=== PATIENT | male | born 1940 | race Caucasian/White ===

== ENCOUNTER 2022-12-02 12:08 | Day surgery (SDC) | payer MEDICARE, OTHER, SELFPAY ==
--- NOTE | 2022-12-02 | LES_PTH ---
PATIENT: JARRED YEE LOC: [facility] [place] U#:[id number] AGE/SX: 82/M ROOM: RE12/02/[address]: Dr. Jayda Novoa MD : 1940 BED: DIS: 12/02/2022 SPEC #: [id number] RECD: 12/02/22 18:31 STATUS: INESSA SUKUMAR #: [id number] CHAVA: 12/02/22 00:[address]: Jayda Novoa DEPT: SURGICAL PATHOLOGY RECD BY: Jake Adamson ENTERED: 12/03/22 10:26 SP TYPE: Lesion OTHR DR: Dr. Jarred Moore II, MD Tissues: A - Skin of nose, NOS B - Skin of head, NOS C - Skin of neck, NOS Procedures: Surgery Specimen Level IV HEADER OPERATION: Excision right nasal lesion, shave biopsy left adventist and right neck PRE-OP DIAGNOSIS: Neoplasm lesion of right nasal, left adventist and right neck TISSUE SUBMITTED: A - Right nasal lesion, B - Shave lesion left adventist, C - Shave lesion right neck MICROSCOPIC DIAGNOSIS A. Right nasal lesion, excisional biopsy: Basal cell carcinoma. See comment. B. Left temporal lesion, shave biopsy: Seborrheic keratosis. Focal actinic keratosis with verrucous keratosis-like features. C. Right neck lesion, shave biopsy: Actinic keratosis with verrucous keratosis-like features. Focal seborrheic keratosis. SJ:valente 12/06/2022 COMMENT A. The tumor is present at one lateral resection margin of the specimen. Clinical correlation and appropriate follow up are necessary. Case has been reviewed in consultation with Dr. Schulte who concurs with the above diagnosis. IDC:AM MICROSCOPIC DESCRIPTION Slides are reviewed. GROSS DESCRIPTION A - Received in fixative is one container labeled with the patient's name and designated right nasal lesion. The specimen consists of a discoid fragment of light mendez excised skin measuring 1.5 x 1.2 x 0.2 cm. The cutaneous surface displays an irregular waxy lesion measuring 1.0 cm in greatest dimension. The specimen is inked, serially sectioned and submitted entirely in one cassette. B - Received in fixative is one container labeled with the patient's name and designated shave biopsy left adventist. The specimen consists of an elongated fragment of dark to light mendez shave skin measuring 1.5 x 0.5 x 0.2 cm. The specimen is totally submitted in one cassette. C - Received in fixative is one container labeled with the patient's name and designated shave biopsy of right neck. The specimen consists of three irregular fragments of light mendez soft tissue ranging in size from 0.2 to 0.8 cm. The largest fragment is inked, bisected and submitted along with the smaller fragments in one cassette. / AM:valente 12/03/2022 TC:0 CPT: 88268 x3
[2022-12-02 12:36] VITALS: BP 152/86; PULSE 73; RESP 16; TEMP 36; O2SAT 94; BMI 39.6
--- NOTE | 2022-12-02 13:39 | PCM.HP.STD ---
HPI - General General Date of Admission: 12/02/22 Date of Service: 12/02/22 Chief Complaint: Lesion of right nose, lesion of left forehead and right neck of uncertain behavior HPI Narrative JARRED YEE, is a 82 M who presents for excision of the lesion of the right nose as well as shave excision of the lesion of his left forehead and right neck. [facility] Medical History (Updated 10/20/22 @ 10:[address] Jayda Novoa MD) BPH (benign prostatic hyperplasia) Depression Heart disease History of COVID-19 (~2020) History of DVT in adulthood History of squamous cell carcinoma HTN (hypertension) Renal calculi Home Medications acetaminophen 500 mg tablet (Tylenol Extra Strength) 500 mg PO Q6H PRN 10/20/22 [History Last Taken Unknown] ascorbic acid (vitamin C) 500 mg capsule mg PO 10/20/22 [History Last Taken Unknown] aspirin 81 mg tablet,delayed release 81 mg PO DAILY 10/20/22 [History Last Taken Unknown] cholecalciferol (vitamin D3) 50 mcg (2,000 unit) capsule 50 mcg PO DAILY 10/20/22 [History Last Taken Unknown] duloxetine 30 mg capsule,delayed release 30 mg PO DAILY 10/20/22 [History Last Taken Unknown] losartan 25 mg tablet mg PO 10/20/22 [History Last Taken Unknown] metoprolol succinate 25 mg tablet,extended release 24 hr mg PO 10/20/22 [History Last Taken Unknown] tamsulosin 0.4 mg capsule mg PO 10/20/22 [History Last Taken Unknown] vitamin B complex (B-Complex tablet) 1 tab PO DAILY 10/20/22 [History Last Taken Unknown] warfarin 5 mg tablet mg PO 10/20/22 [History Last Taken Unknown] Allergy/AdvReac Type Severity Reaction Status Date / Time acetaminophen [From Percocet] AdvReac Intermediate Low blood Verified 10/20/22 09:37 pressure oxycodone [From Percocet] AdvReac Intermediate Low blood Verified 10/20/22 09:37 pressure Family History (Updated 10/20/22 @ 09:36 by Megan Max) Father Hypertension Diabetes Heart disease Cancer skin Mother Hypertension Cancer skin Surgical History (Updated 10/20/22 @ 09:35 by Megan Max) History of amputation of right great toe (~04/2022) History of appendectomy History of hernia repair History of squamous cell carcinoma excision History of tonsillectomy Social History (Updated 10/20/22 @ 09:16 by Megan Max) Smoking Status: Former smoker alcohol intake: never substance use type: does not use Vital Signs Vital Signs Vital Signs: 12/02/22 12:36 12/02/22 12:36 Temperature 96.8 F L Temperature Source Temporal Pulse Rate 73 Respiratory Rate 16 Respiratory Pattern Normal Blood Pressure 152/86 H Blood Pressure Mean 108 Blood Pressure Source Monitor Blood Pressure Position Sitting Blood Pressure Location Left Arm Pulse Ox 94 Oxygen Delivery Method Room Air Weight Weight: 309 lb 4.937 oz Body Mass Index (BMI) 39.6 Physical Exam Const alert, oriented x3, no apparent distress, average body habitus and well nourished General Appearance: cooperative and well developed Orientation / Consciousness: oriented to person, oriented to place and oriented to time HEENT head/scalp atraumatic, external ears normal and external nose normal Head and Scalp: normal to inspection, normocephalic, atraumatic and abrasion Face and Sinus: normal facial exam and face symmetric Nose: external nose normal External Ear: external ears normal External Auditory Canal: EAC's normal Mouth: lips normal Eyes PERRL, EOMs intact bilaterally and conjunctivae normal General Eye: normal appearance of both eyes Periorbital: periorbital findings normal Eyelid: eyelids normal Conjunctiva: conjunctiva normal Pupil: PERRL Neck full ROM Lymph Lymphatic: no lymphadenopathy noted Chest inspection of chest normal Breast/Axilla Palpation: no axillary lymphadenopathy Resp normal respiratory effort, normal air movement and clear to auscultation bilaterally Auscultation: clear to auscultation bilaterally Cardio regular rate, regular rhythm, S1 normal heart sound, S2 normal heart sound and no murmurs Rate: regular rate Rhythm: regular rhythm GI soft to palpation and non-tender Extremity normal to inspection and full ROM General Extremity: edema bilateral Skin Skin Narrative: Ulcerated lesion of right nose. Hyperkeratotic and exophytic lesion of his left buddhist and right neck General Skin Exam: turgor normal Neuro oriented x3, CN's II-XII intact bilaterally, moves all extremities, no focal motor deficits and no sensory deficits noted Sensorium / Orientation: awake, alert, oriented to person, oriented to place and oriented to time Speech: speech normal Gait (Neuro): normal gait Psych mental status grossly normal Attention / Concentration: concentration grossly intact Memory / Cognition: memory grossly intact Assessment & Plan Assessment/Plan (1) Neoplasm of uncertain behavior of skin of face: (2) Neoplasm of uncertain behavior of skin of neck: PLAN: Plan Patient for excision of the lesion of the nose and shave lesion of the buddhist and neck. The specimens will be sent to pathology for evaluation. He is aware of the potential need for further surgery depending on the resulting pathology.
[2022-12-02 13:50] VITALS: BP 153/106; O2SAT 96; O2SAT 97
[2022-12-02 14:00] VITALS: BP 122/81; BP 151/78; O2SAT 94; O2SAT 95; O2SAT 96; O2SAT 97
[2022-12-02] MEDS: Lidocaine 1% /Epi 1:100 9 ML, Sodium Bicarbonate 1 MEQ OPERA.SITE (14:00)
[2022-12-02] MEDS: Bacitracin 500 UNITS/GM PACKET (14:40)
--- NOTE | 2022-12-02 14:50 | DCINST_ITS ---
Discharge Instructions Diet Discharge Diet: No restrictions Activity Additional Activity Instructions:: Keep your back elevated (recliner position) to decrease bleeding and swelling. Take the antibiotic pill prescribed 2 x a day until finished. Keep the tape on your nose dry. Do not remove this--but if it falls off, apply antibiotic ointment to the area. May remove the bandaids on your forehead and neck tomorrow. (Apply a thin layer of antibiotic ointment --like neosporin or bacitracin 1 x a day to these sites) Follow Up Care Please Follow Up With: Jayda Novoa MD When: as scheduled Test Results: Test results from this visit will be discussed in further detail at your follow- up appointment, if applicable. Discharge Plan Admission Attending Provider: Jayda Novoa Primary Care Provider: Mansoor Moore II Discharge Orders/Prescriptions Prescriptions: New cephalexin 500 mg capsule 500 mg PO BID 7 Days Qty: 14 0RF No Action warfarin 5 mg tablet PO metoprolol succinate 25 mg tablet extended release 24 hr PO tamsulosin 0.4 mg capsule PO duloxetine 30 mg capsule,delayed release(DR/EC) 30 mg PO DAILY losartan 25 mg tablet PO Patient Comments: TAKE 1 TABLET BY MOUTH ONCE DAILY ascorbic acid (vitamin C) 500 mg capsule PO aspirin 81 mg tablet,delayed release (DR/EC) 81 mg PO DAILY cholecalciferol (vitamin D3) 50 mcg (2,000 unit) capsule 50 mcg PO DAILY vitamin B complex [B-Complex] Tablet 1 tab PO DAILY acetaminophen [Tylenol Extra Strength] 500 mg tablet 500 mg PO Q6H PRN Referrals / Follow Up: Mansoor Moore II, MD [Primary Care Provider] - Disposition Disposition (needs filled in before D/C Order can be placed): Home, Self Care
[2022-12-02 14:55] VITALS: BP 143/71; BP 152/86; PULSE 73; RESP 18; TEMP 36.4; O2SAT 98
--- NOTE | 2022-12-02 15:00 | OP.PCM_ITS ---
Problems Associated Problem List Diagnoses (1) Neoplasm of uncertain behavior of skin of neck: (2) Neoplasm of uncertain behavior of skin of face: Report of Operation Date of Procedure: 12/02/22 Pre-Operative Diagnosis: Neoplasm of uncertain behavior of nose, left forehead, and right neck Post-Operative Diagnosis: Same Surgery/Procedure Performed:: Excision lesion of right nose (2.0 cm ); Shave lesion of left forehead (2.0 cm); Shave lesion right neck (1.0 cm) Surgeon: Jayda Novoa industrial property appraiser: None Type of Anesthesia: Local Specimen's removed: ForeheadLesion of right nose, left, and right neck Drains: None Estimated Blood Loss (mL): <10cc Description of Procedure: The procedure of excision of the lesion of the right nose as well as shave lesion of the left forehead and right neck were reviewed with the patient. The specimens will be sent to pathology for evaluation. The patient is aware of the potential for further surgery depending on the resulting pathology. The patient was brought to the operating room and placed on the operating room table in the supine position. The face and right neck were prepped and draped in the usual sterile fashion. 1% Xylocaine with epinephrine buffered with sodium bicarb is injected at all sites. The site on the nose, which is ulcerated, is excised and passed off the operative field to be sent to pathology. Hemostasis is controlled with cautery. The site is then sequentially closed using silk sutures. Further refinement of the closure was performed with a running chromic suture. Dermabond and Steri-Strips were placed on the area. We then directed our attention to the lesion of the left mu-ism and right neck and after these are anesthetized with 1% Xylocaine and with epinephrine, they are shaved at the base and the base fulgurated. Antibiotic ointment and Band-Aids were placed on all areas. He tolerated the procedure well was taken to the recovery area in an awake and stable condition. Needle and sponge counts are correct. Complications None Admit VTE Documentation VTE Mechan Device Prophylaxis: None Reason prophylaxis not ordered:: Treatment Not Indicated
[2022-12-02 15:05] VITALS: BP 152/86
== END 2022-12-02 15:20 | disposition home or self-care (01) ==
LOC: SDC 12:13 → AC 12:14
PROVIDERS: PCP Internal Medicine; Referring Provider Plastic Surgery; Visit Provider Plastic Surgery
PROC: (CPT 11642; principal; 2022-12-02 14:25)
DX: C44.311 Basal cell carcinoma of skin of nose (principal); L82.1 Other seborrheic keratosis; L57.0 Actinic keratosis; Z79.82 Long term (current) use of aspirin; Z79.01 Long term (current) use of anticoagulants; Z79.899 Other long term (current) drug therapy; Z87.891 Personal history of nicotine dependence
CPT/HCPCS: 11642; 11312; 11306; 88305

== ENCOUNTER 2023-04-15 08:40 | Day surgery (SDC) | payer MEDICARE, OTHER, SELFPAY ==
--- NOTE | 2023-04-15 | LES_PTH ---
PATHOLOGY RESULTS PATIENT: JARRED YEE LOC: [facility] [place] U#:[id number] AGE/SX: 82/M ROOM: RE04/15/[address]: Dr. Jayda Novoa MD : 1940 BED: DIS: 04/15/2023 SPEC #: [id number] RECD: 04/15/23 10:40 STATUS: INESSA REMichelle #: [id number] CHAVA: 04/15/23 00:[address]: Jayda Novoa DEPT: SURGICAL PATHOLOGY RECD BY: Meme Pathak ENTERED: 04/15/23 11:18 SP TYPE: Lesion Tissues: Skin of nose, NOS Procedures: Frozen Section (charge) Frozen Section [facility] ([facility]) Surgery Specimen Level IV HEADER OPERATION: Re-excision basal cell carcinoma right nose, frozen section PRE-OP DIAGNOSIS: Basal cell carcinoma of skin of nose TISSUE SUBMITTED: Basal cell carcinoma, right nose, frozen section MICROSCOPIC DIAGNOSIS Skin lesion of nose, biopsy: Cicatrix. Mild chronic inflammation. Solar elastosis. No evidence of carcinoma. AM:valente 04/18/2023 COMMENT Right nose lesion, excisional biopsy: Negative for residual carcinoma. Margins are free. ISAI:valente 04/15/2023 Case has been reviewed in consultation with Dr. Schulte who concurs with the above diagnosis. IDC:AM MICROSCOPIC DESCRIPTION Slides are reviewed. GROSS DESCRIPTION Received fresh for frozen section diagnosis labeled with the patient's name is a specimen designated right nose. The specimen consists of an ovoid piece of mendez-white skin measuring 1.7 x 0.7 x 0.3 cm. The specimen is oriented. The specimen is inked as follows: 12 o'clock - black, 6 o'clock - blue, 9 o'clock - yellow, 3 o'clock - green. The specimen is serially sectioned and submitted entirely for frozen section diagnosis in two cassettes as follows: 1 - 3 and 9 o'clock margin, 2 - rest of the specimen. / SJ:valente 04/15/2023 TC:5 CPT: 31011, 40401, 63844
[2023-04-15 09:08] VITALS: BP 140/80; PULSE 76; RESP 18; TEMP 36.4; O2SAT 95; BMI 39.3
--- NOTE | 2023-04-15 09:43 | PCM.HP.STD ---
HPI - General General Date of Admission: 04/15/23 Date of Service: 04/15/23 Chief Complaint: Biopsy proven BCC left nose HPI Narrative JARRED YEE, is a 82 M who presents for excision BCC right nose with FS for previously dxed BCC. [facility] Medical History (Updated 04/15/23 @ 09:05 by Delfina Gutiérrez) BPH (benign prostatic hyperplasia) Depression Heart disease History of COVID-19 (~2020) History of DVT in adulthood History of squamous cell carcinoma HTN (hypertension) Pacemaker Renal calculi Home Medications acetaminophen 500 mg tablet (Tylenol Extra Strength) 500 mg PO Q6H 10/20/22 [History Last Taken Unknown] ascorbic acid (vitamin C) 500 mg capsule 500 mg PO DAILY 10/20/22 [History Last Taken 04/15/23] aspirin 81 mg tablet,delayed release 81 mg PO DAILY 10/20/22 [History Last Taken Unknown] cholecalciferol (vitamin D3) 50 mcg (2,000 unit) capsule 50 mcg PO DAILY 10/20/22 [History Last Taken Unknown] duloxetine 30 mg capsule,delayed release 30 mg PO DAILY 10/20/22 [History Last Taken Unknown] losartan 25 mg tablet 25 mg PO DAILY 10/20/22 [History Last Taken Unknown] metoprolol succinate 25 mg tablet,extended release 24 hr 50 mg PO DAILY 10/20/22 [History Last Taken Unknown] tamsulosin 0.4 mg capsule 0.4 mg PO DAILY 10/20/22 [History Last Taken Unknown] vitamin B complex (B-Complex tablet) 1 tab PO DAILY 10/20/22 [History Last Taken Unknown] warfarin 5 mg tablet 5 mg PO SUTUWEFRSA 10/20/22 [History Last Taken Unknown] warfarin 5 mg tablet 2.5 mg PO MOTH 04/15/23 [History Last Taken 04/14/23] Allergy/AdvReac Type Severity Reaction Status Date / Time acetaminophen [From Percocet] AdvReac Intermediate Low blood Verified 04/15/23 08:58 pressure oxycodone [From Percocet] AdvReac Intermediate Low blood Verified 04/15/23 08:58 pressure Family History (Updated 10/20/22 @ 09:36 by Megan Max) Father Hypertension Diabetes Heart disease Cancer skin Mother Hypertension Cancer skin Surgical History (Updated 04/15/23 @ 09:04 by Delfina Gutiérrez) History of amputation of right great toe (~04/2022) History of appendectomy History of hernia repair History of squamous cell carcinoma excision History of surgical removal of skin lesion History of tonsillectomy Social History (Updated 10/20/22 @ 09:16 by Megan Max) Smoking Status: Former smoker alcohol intake: never substance use type: does not use Vital Signs Vital Signs Vital Signs: 04/15/23 09:08 04/15/23 09:08 Temperature 97.6 F L Temperature Source Temporal Pulse Rate 76 Respiratory Rate 18 Respiratory Pattern Normal Blood Pressure 140/80 H Blood Pressure Mean 100 Blood Pressure Source Monitor Blood Pressure Position Sitting Blood Pressure Location Left Forearm Pulse Ox 95 Oxygen Delivery Method Room Air Weight Weight: 306 lb 7.08 oz Body Mass Index (BMI) 39.3 Physical Exam Narrative nodular scarring right nose at ala Const alert, oriented x3, no apparent distress, average body habitus and well nourished General Appearance: cooperative and well developed Orientation / Consciousness: oriented to person, oriented to place and oriented to time HEENT head/scalp atraumatic and external ears normal Head and Scalp: normal to inspection, normocephalic, atraumatic and abrasion Face and Sinus: normal facial exam and face symmetric Nose: external nose normal External Ear: external ears normal External Auditory Canal: EAC's normal Mouth: lips normal Eyes PERRL, EOMs intact bilaterally and conjunctivae normal General Eye: normal appearance of both eyes Periorbital: periorbital findings normal Eyelid: eyelids normal Conjunctiva: conjunctiva normal Pupil: PERRL Neck full ROM Lymph Lymphatic: no lymphadenopathy noted Chest inspection of chest normal Breast/Axilla Palpation: no axillary lymphadenopathy Resp normal respiratory effort, normal air movement and clear to auscultation bilaterally Auscultation: clear to auscultation bilaterally Cardio regular rate, regular rhythm, S1 normal heart sound, S2 normal heart sound and no murmurs Rate: regular rate Rhythm: regular rhythm GI soft to palpation and non-tender Extremity normal to inspection and full ROM General Extremity: normal exam except as noted and edema bilateral Skin General Skin Exam: turgor normal Neuro oriented x3, CN's II-XII intact bilaterally, moves all extremities, no focal motor deficits and no sensory deficits noted Sensorium / Orientation: awake, alert, oriented to person, oriented to place and oriented to time Speech: speech normal Gait (Neuro): normal gait Psych mental status grossly normal Attention / Concentration: concentration grossly intact Memory / Cognition: memory grossly intact Assessment & Plan Assessment/Plan (1) Basal cell carcinoma (BCC) of skin of nose: PLAN: Plan BCC right nose--for excision with FS
[2023-04-15] MEDS: Povidone Iodine 30 ML Opthalmic Sol 1 DRP (10:21)
[2023-04-15 10:25] VITALS: BP 120/70; BP 133/79; O2SAT 95; O2SAT 96; O2SAT 97
[2023-04-15] MEDS: Lidocaine 1% /Epi 1:100 9 ML, Sodium Bicarbonate 1 MEQ OPERA.SITE (10:28)
--- NOTE | 2023-04-15 11:18 | DCINST_ITS ---
Discharge Instructions Dressing / Incision Additional Dressing/Incision Instructions:: Keep your head elevated (recliner position) to reduce swelling and bruising. Take the oral antibiotic (Keflex) 2 x a day until finished. When tape falls off, clean the area with peroxide 1 x a day and apply a bandaid. Follow Up Care Please Follow Up With: Jayda Novoa MD When: in 1-2 weeks Test Results: Test results from this visit will be discussed in further detail at your follow- up appointment, if applicable. Discharge Plan Admission Attending Provider: Jayda Novoa Primary Care Provider: Mansoor Moore II Discharge Orders/Prescriptions Prescriptions: New cephalexin 500 mg capsule 500 mg PO BID 7 Days Qty: 14 0RF No Action warfarin 5 mg tablet 5 mg PO SUTUWEFRSA metoprolol succinate 25 mg tablet extended release 24 hr 50 mg PO DAILY tamsulosin 0.4 mg capsule 0.4 mg PO DAILY duloxetine 30 mg capsule,delayed release(DR/EC) 30 mg PO DAILY losartan 25 mg tablet 25 mg PO DAILY Patient Comments: TAKE 1 TABLET BY MOUTH ONCE DAILY ascorbic acid (vitamin C) 500 mg capsule 500 mg PO DAILY aspirin 81 mg tablet,delayed release (DR/EC) 81 mg PO DAILY cholecalciferol (vitamin D3) 50 mcg (2,000 unit) capsule 50 mcg PO DAILY vitamin B complex [B-Complex] Tablet 1 tab PO DAILY acetaminophen [Tylenol Extra Strength] 500 mg tablet 500 mg PO Q6H warfarin 5 mg tablet 2.5 mg PO MOTH Referrals / Follow Up: Mansoor Moore II, MD [Primary Care Provider] - Disposition Disposition (needs filled in before D/C Order can be placed): Home, Self Care
--- NOTE | 2023-04-15 11:22 | PCM.OPRPT ---
Problems Associated Problem List Diagnoses (1) Basal cell carcinoma (BCC) of skin of nose: Report of Operation Date of Procedure: 04/15/23 Pre-Operative Diagnosis: Biopsy-proven BCC right nose Post-Operative Diagnosis: Same Surgery/Procedure Performed:: Excision BCC right nose with FS (2.5 cm) Surgeon: Jayda Novoa Type of Anesthesia: Local Specimen's removed: BCC right nose Drains: None Estimated Blood Loss (mL): Minimal Description of Procedure: The patient presents with a biopsy-proven BCC of the right nose. Because of a previous positive margin, he presents for reexcision to assure clear margins. The patient was brought to the operating room and placed on the operating room table right nose is prepped and draped in the usual sterile fashion. 1% Xylocaine with epinephrine is used for local anesthetic. Following this, the previous excision scar is removed. Orientation is maintained to send to pathology for frozen section. Frozen section confirms clear margins and therefore the wound is closed. After assuring hemostasis with cautery, the wound is closed using a running chromic suture along with interrupted silk suture for further reinforcement of the closure. The patient is noted to have some distortion of the right rim of the nasal ala however the patient is assured that as this heals that will become less apparent. The wound is then dressed with Steri-Strips. He tolerated the procedure well was taken to the recovery area in an awake and stable condition. Needle and sponge counts are correct. Complications None Admit VTE Documentation VTE Mechan Device Prophylaxis: None Reason prophylaxis not ordered:: Treatment Not Indicated
[2023-04-15 11:47] VITALS: BP 138/77; BP 140/80; PULSE 70; RESP 16; TEMP 36.7; O2SAT 98
== END 2023-04-15 11:50 | disposition home or self-care (01) ==
LOC: SDC 08:41 → AC 08:43
PROVIDERS: PCP Internal Medicine; Referring Provider Plastic Surgery; Visit Provider Plastic Surgery
PROC: (CPT 11643; principal; 2023-04-15 10:30)
DX: C44.311 Basal cell carcinoma of skin of nose (principal); L57.8 Other skin changes due to chronic exposure to nonionizing radiation; L90.5 Scar conditions and fibrosis of skin; I11.9 Hypertensive heart disease without heart failure; Z95.0 Presence of cardiac pacemaker; Z79.01 Long term (current) use of anticoagulants; Z79.899 Other long term (current) drug therapy; Z86.16 Personal history of COVID-19; Z86.718 Personal history of other venous thrombosis and embolism; Z87.891 Personal history of nicotine dependence; Z79.82 Long term (current) use of aspirin; Z84.0 Family history of diseases of the skin and subcutaneous tissue
CPT/HCPCS: 11643; 88305; 88331; 88332